=== PATIENT | female | born 1995 | race Caucasian/White ===

== ENCOUNTER 2021-09-01 20:50 | Outpatient (REF) | payer BC, SELFPAY ==
[2021-09-03 11:59] LABS: COVID-19 RT-PCR UVMMC Result Negative (Negative)
== END 2021-09-01 20:51 | disposition home or self-care (01) ==
LOC: LBN 20:50
PROVIDERS: PCP Pediatrics; Visit Provider Physician Assistant
DX: Z20.822 Contact with and (suspected) exposure to COVID-19 (principal); B34.9 Viral infection, unspecified
CPT/HCPCS: U0003